=== PATIENT | male | born 1995 | race Caucasian/White ===

== ENCOUNTER 2020-06-01 19:09 | Emergency (ER) | payer OTHER, SELFPAY ==
[2020-06-01 19:24] VITALS: BP 125/77; PULSE 68; RESP 17; TEMP 36.8; O2SAT 99; BMI 21.5
--- NOTE | 2020-06-01 19:49 | W.ED.ANIMALB ---
HPI - Animal Bite General: Chief Complaint: Animal Bite Stated Complaint: arm pain Time Seen by Provider: 06/01/20 19:32 History of Present Illness: HPI narrative: Right wrist with redness after a wasp sting 6 days ago Tetanus is up-to-date MD complaint: other (Wasp sting) Onset (ago): day(s) Location - Extremities: Right: forearm Pain description: dull Severity scale (1-10): 3 Associated symptoms: Deny chills, fever(s) or headache(s) Review of Systems Const: Denies: fever(s), chills or body aches Eyes: Denies: change in vision or blurry vision ENMT: Denies: throat pain or nasal congestion Card: Denies: chest pain or dyspnea on exertion Resp: Denies: dyspnea, productive cough or non-productive cough GI: Denies: abdominal pain, nausea or vomiting : Denies: difficulty urinating Musc: Denies: extremity pain Skin/Breast: Reports: other (Wasp sting that has drainage and is turned red on his right wrist times last couple days); Denies: rash Neuro: Denies: headache(s) Psych: Denies: anxiety or depression Isma/Lymph: Denies: easy bruising Physical Exam Const: COMMON NORMALS: no acute distress, average body habitus and patient oriented x3 HENMT: COMMON NORMALS: normocephalic HEAD & SCALP: normal to inspection and normocephalic FACE & SINUS: normal facial exam Eye: COMMON NORMALS: conjunctivae normal GENERAL EYE: appearance normal, both eyes and all related structures CONJUNCTIVA: Yes conjunctivae normal Neck/C-Spine: COMMON NORMALS: no JVD Chest: COMMONS NORMALS: normal inspection of the chest Resp: COMMON NORMALS: normal respiratory effort and clear to auscultation bilaterally AUSCULTATION: clear to auscultation bilaterally Cardio: COMMON NORMALS: no JVD, regular rate and regular rhythm RATE: regular rate RHYTHM: regular rhythm GI: COMMON NORMALS: Normal to inspection, nondistended, normoactive bowel sounds present Extremity: COMMON NORMALS: normal to inspection and full ROM Neuro: COMMON NORMALS: patient oriented x3 Skin: NARRATIVE SKIN EXAM: Erythematous around wasp sting with drainage tender right wrist Course Vital Signs: Vital signs: Vital Signs Temperature 98.2 F 06/01/20 19:24 Pulse Rate 68 06/01/20 19:24 Respiratory Rate 17 06/01/20 19:24 Blood Pressure 125/77 06/01/20 19:24 Pulse Oximetry 99 06/01/20 19:24 Discharge Plan Discharge Patient Disposition: Home, Self-Care Clinical Impression: Cellulitis Qualifiers: Site of cellulitis: extremity Site of cellulitis of extremity: upper extremity Laterality: right Qualified Code(s): L03.113 - Cellulitis of right upper limb Condition: Stable Prescriptions: New Levaquin 500 mg tablet 500 mg PO DAILY 7 Days Qty: 7 RF: 0 Discharge Orders: Discharge Order (Routine); Ordered 06/01/20 Ordered By: Raúl Drake Discharge Diet: Usual diet Discharge Activity: Increase activity as tolerated Patient Instructions: Cellulitis (ED) Activity Restrictions/Additional Instructions: Follow-up with medical provider as directed. Take medications as prescribed. Return to the ER or your medical provider if condition worsens. Please read and understand discharge instructions. If any questions ask please. Keep wound clean covered do not let like water get into the wound Coding Level of Care Code ED Station Inspector for Tomi Fwd Exam Comprehensive
[2020-06-01] MEDS: levoFLOXacin 500 mg Tablet PO (20:04)
== END 2020-06-01 20:08 | disposition home or self-care (01) ==
PROVIDERS: Emergency Provider Nurse Practitioner Family
DX: L03.113 Cellulitis of right upper limb (principal)
CPT/HCPCS: 12345; 99281; 99282